=== PATIENT | female | born 1965 | race Two or more races ===

== ENCOUNTER 2023-03-13 08:48 | Inpatient (IN) | payer MEDICAID ==
[~2023-03-13] VITALS: Ht 149.9 cm; Wt 90.6 kg
[2023-03-13 09:43] LABS: Urine Bacteria FEW /hpf (None Seen); Urine Blood Negative /uL (Negative); Urine Clarity HAZY (Clear); Urine Color Yellow (Yellow); Urine Protein, UAD Negative (Negative); Urine WBC 24 /hpf (0 - 5); Urine pH 5.5 (5.0-8.0)
[2023-03-13 09:56] LABS: Alanine Aminotransferase 32 U/L (7-40); Albumin 3.9 g/dL (3.2-4.8); Alkaline Phosphatase 171 U/L (46-116); Anion Gap 10 (5-15); Aspartate Aminotransferase 29 U/L (13-40); BUN/Creatinine Ratio 13.7 (10.0-20.0); Bilirubin, Total 0.7 mg/dL (0.2-1.0); Blood Urea Nitrogen 18 mg/dL (9-23); Calcium 9.3 mg/dL (8.5-10.1); Carbon Dioxide 22 mmol/L (20-30); Chloride 104 mmol/L (98-107); Glucose 310 mg/dL (74-106); Potassium 3.9 mmol/L (3.5-5.1); Sodium 136 mmol/L (136-145); Total Protein 7.3 g/dL (5.7-8.2)
[2023-03-13 10:05] LABS: Basophils # (auto) 0 10 ^3/uL (0-0.2); Basophils % (auto) 0.1 % (0.0-2.0); Eosinophils # (auto) 0.2 10 ^3/uL (0-0.8); Eosinophils % (auto) 3.5 % (0.0-7.0); Hematocrit 46.1 % (36.0-46.0); Hemoglobin 15.1 g/dL (12.2-16.2); Lymphocytes # (auto) 2.3 10 ^3/uL (0.4-5.4); Lymphocytes % (auto) 35.7 % (10.0-50.0); Mean Corpuscular Hemoglobin 30.3 pg (28.0-32.0); Mean Corpuscular Hgb Conc. 32.7 g/dL (32.0-36.0); Mean Corpuscular Volume 92.5 fL (80.0-100.0); Monocytes # (auto) 0.4 10 ^3/uL (0-1.3); Monocytes % (auto) 6.8 % (0.0-12.0); Neutrophils # (auto) 3.4 10 ^3/uL (1.6-8.6); Neutrophils % (auto) 53.9 % (37.0-80.0); Nucleated Red Blood Cells % 0.1 %; Red Blood Cells 4.98 10^6/uL (4.0-5.20); Red Cell Distribution Width 14.8 % (11.8-14.3); White Blood Cell 6.4 10^3/uL (4.4-10.8)
[2023-03-13 12:08] LABS: INR 1.09 (0.9-1.15); Partial Thromboplastin Time 29.3 SEC (24.5-34.5); Prothrombin Time 11.4 sec (9.3-11.8)
[2023-03-13 12:17] LABS: Blood Alcohol < 3.0 mg/dL (<10); Magnesium 2.4 mg/dL (1.6-2.6)
[2023-03-13 12:26] LABS: Lactic Acid w/Reflex 2.7 mmol/L (0.4-2.0)
[2023-03-13] MEDS ORDERED: SODIUM CHLORIDE 0.9% 1,000 ML IV ONE ×2 (12:30→15:00)
[2023-03-13] MEDS ORDERED: PIPERACILLIN-TAZOB 3.375GM 100 ML IV ONE (12:30)
[2023-03-13] MEDS ORDERED: LACTULOSE 20Gm/30ML SOLN PO ONE (13:45)
[2023-03-13] MEDS ORDERED: cefTRIAXone 1GM/50ML D5W 50 ML IV ONE (14:45)
[2023-03-13] MEDS ORDERED: DEXTROSE (50%) 50ML SYRG IV PRN (14:45)
[2023-03-13 15:30] LABS: Triglycerides 131 mg/dL (< 150)
[2023-03-13 15:31] LABS: LDL Cholesterol 58 mg/dL (< 100)
[2023-03-13 15:32] LABS: Cholesterol 136 mg/dL (< 200); HDL Cholesterol 57 mg/dL (40-59)
[2023-03-13] MEDS ORDERED: IOHEXOL 350 MG/ML 100ML IJ ONE (15:57)
[2023-03-13 16:27] LABS: Amphetamine Screen, Urine Neg (NEGATIVE); Barbiturate Scree,Urine Neg (NEGATIVE); Benzodiazephine Screen, Urine Neg (NEGATIVE); Cannabinoid Screen, Urine Neg (NEGATIVE); Cocaine Screen, Urine Neg (NEGATIVE); Opiate Scree,Urine Neg (NEGATIVE); Phencyclidine Screen, Urine Neg (NEGATIVE)
[2023-03-13] MEDS: InsuLIN REG 1unit/0.01ml Soln (100units/ml) SC SCH ×2 (20:22→22:05)
[2023-03-13] MEDS: ACCU-CHEK COMFORT CURVE STRIP VI SCH ×2 (20:22→22:02)
[2023-03-13 20:29] VITALS: PULSE 95; RESP 20; O2SAT 98
[2023-03-13] MEDS: SODIUM CHLORIDE 0.9% 1,000 ML IV SCH (20:31)
[2023-03-13] MEDS: LACTULOSE 20Gm/30ML SOLN PO SCH (21:12)
[2023-03-13] MEDS: HEPARIN SODIUM (PORCINE) 5000 UNITS/ML 1ML VIAL SC SCH (21:13)
[2023-03-14 06:35] LABS: Basophils # (auto) 0 10 ^3/uL (0-0.2); Basophils % (auto) 0.1 % (0.0-2.0); Eosinophils # (auto) 0.2 10 ^3/uL (0-0.8); Hemoglobin 14.1 g/dL (12.2-16.2); Lymphocytes # (auto) 1.9 10 ^3/uL (0.4-5.4); Lymphocytes % (auto) 30.4 % (10.0-50.0); Mean Corpuscular Hemoglobin 30.5 pg (28.0-32.0); Mean Corpuscular Hgb Conc. 32.8 g/dL (32.0-36.0); Mean Corpuscular Volume 92.9 fL (80.0-100.0); Monocytes # (auto) 0.4 10 ^3/uL (0-1.3); Monocytes % (auto) 6.5 % (0.0-12.0); Neutrophils # (auto) 3.8 10 ^3/uL (1.6-8.6); Red Blood Cells 4.63 10^6/uL (4.0-5.20); Red Cell Distribution Width 14.9 % (11.8-14.3); White Blood Cell 6.3 10^3/uL (4.4-10.8)
[2023-03-14 06:51] LABS: Alanine Aminotransferase 27 U/L (7-40); Albumin 3.8 g/dL (3.2-4.8); Alkaline Phosphatase 175 U/L (46-116); Anion Gap 9 (5-15); Aspartate Aminotransferase 24 U/L (13-40); BUN/Creatinine Ratio 10.3 (10.0-20.0); Bilirubin, Total 0.5 mg/dL (0.2-1.0); Blood Urea Nitrogen 10 mg/dL (9-23); Calcium 8.7 mg/dL (8.7-10.4); Carbon Dioxide 18 mmol/L (20-30); Chloride 111 mmol/L (98-107); Glucose 224 mg/dL (74-106); Potassium 3.9 mmol/L (3.5-5.1); Sodium 138 mmol/L (136-145)
[2023-03-14 06:52] LABS: Total Protein 7.3 g/dL (5.7-8.2)
[2023-03-14] MEDS: ACCU-CHEK COMFORT CURVE STRIP VI SCH ×4 (07:57→21:52)
[2023-03-14] MEDS: InsuLIN REG 1unit/0.01ml Soln (100units/ml) SC SCH ×4 (07:58→21:54)
[2023-03-14] MEDS ORDERED: ENOXAPARIN SOD 40 MG/0.4 ML SYRINGE SC SCH (10:00)
[2023-03-14] MEDS: SODIUM CHLORIDE 0.9% 1,000 ML IV SCH (10:10)
[2023-03-14] MEDS: cefTRIAXone 1GM/50ML D5W 50 ML IV SCH (10:10)
[2023-03-14] MEDS: LACTULOSE 20Gm/30ML SOLN PO SCH ×4 (10:18→21:39)
[2023-03-14] MEDS: HEPARIN SODIUM (PORCINE) 5000 UNITS/ML 1ML VIAL SC SCH ×2 (10:21→21:40)
[2023-03-14] MEDS ORDERED: LIDOCAINE VISCOUS 2% 15ML UD ONE (13:37)
[2023-03-14 16:57] VITALS: BP 129/78; PULSE 103; RESP 18; TEMP 98.1; O2SAT 95
[2023-03-14 17:05] VITALS: RESP 18
[2023-03-14 22:00] VITALS: BP 106/40; PULSE 81; RESP 15; TEMP 98; O2SAT 93
[2023-03-15 05:00] VITALS: BP 128/58; PULSE 97; RESP 15; TEMP 98.1; O2SAT 97
[2023-03-15] MEDS: LACTULOSE 20Gm/30ML SOLN PO SCH ×4 (05:48→21:56)
[2023-03-15] MEDS: ACCU-CHEK COMFORT CURVE STRIP VI SCH ×4 (05:53→21:56)
[2023-03-15] MEDS: InsuLIN REG 1unit/0.01ml Soln (100units/ml) SC SCH ×4 (05:53→22:00)
[2023-03-15] MEDS: SODIUM CHLORIDE 0.9% 1,000 ML IV SCH ×2 (05:57→16:45)
[2023-03-15 08:00] VITALS: PULSE 100; RESP 20; O2SAT 99
[2023-03-15 09:00] VITALS: BP 126/64; PULSE 110; RESP 20; TEMP 98.1; O2SAT 99
[2023-03-15] MEDS: cefTRIAXone 1GM/50ML D5W 50 ML IV SCH (09:48)
[2023-03-15 13:00] VITALS: BP 115/62; PULSE 103; RESP 18; TEMP 98.6; O2SAT 99
[2023-03-15 16:59] VITALS: BP 113/59; PULSE 95; RESP 20; TEMP 98.4; O2SAT 94
[2023-03-15] MEDS: AMPICILLIN INJ 1 GM in SODIUM CHL 0.9% 100 ML IV SCH (18:14)
[2023-03-15 22:00] VITALS: BP 107/50; PULSE 81; RESP 17; TEMP 98.2; O2SAT 97
[2023-03-16] MEDS: AMPICILLIN INJ 1 GM in SODIUM CHL 0.9% 100 ML IV SCH ×3 (00:10→12:00)
[2023-03-16 05:00] VITALS: BP_SYST 110; BP_SYST 113; BP_DIAS 52; BP_DIAS 69; PULSE 72; PULSE 77; RESP 17; TEMP 98.1; O2SAT 96; O2SAT 98
[2023-03-16] MEDS: SODIUM CHLORIDE 0.9% 1,000 ML IV SCH (05:20)
[2023-03-16] MEDS: LACTULOSE 20Gm/30ML SOLN PO SCH ×2 (06:25→12:00)
[2023-03-16] MEDS: ACCU-CHEK COMFORT CURVE STRIP VI SCH ×2 (06:25→11:30)
[2023-03-16] MEDS: InsuLIN REG 1unit/0.01ml Soln (100units/ml) SC SCH ×2 (06:29→11:30)
[2023-03-16 08:00] VITALS: BP 116/68; PULSE 105; RESP 18; TEMP 97.9
[2023-03-16 09:00] VITALS: BP 116/68; PULSE 105; RESP 18; TEMP 97.9; O2SAT 100
[2023-03-16] MEDS ORDERED: AMPI500C9 PO (12:18)
[2023-03-16 13:00] VITALS: BP 116/64; PULSE 104; RESP 18; TEMP 98.8; O2SAT 95
[2023-03-16 15:36] VITALS: BP 120/72; PULSE 98; RESP 18; TEMP 97.9; O2SAT 100
[2023-03-16 16:41] VITALS: BP 121/60; PULSE 100; RESP 20; TEMP 98.1; O2SAT 97
== END 2023-03-16 16:58 | disposition home or self-care (01) | DRG 469 ==
LOC: ER 08:48 → OVERFLOW 14:54 → WEST WING 03-14 16:52
PROVIDERS: ADMIT Nurse Practitioner Family; ATTEND Family Medicine
PROC: 05HC33Z Insertion of Infusion Device into Left Basilic Vein, Percutaneous Approach (ICD-10-PCS; principal; 2023-03-13)
PROC: B54NZZA Ultrasonography of Left Upper Extremity Veins, Guidance (ICD-10-PCS; 2023-03-13)
DX: N17.9 Acute kidney failure, unspecified (principal); G93.41 Metabolic encephalopathy; K76.82 Hepatic encephalopathy; E87.21 Acute metabolic acidosis; B95.1 Streptococcus, group B, as the cause of diseases classified elsewhere; E11.9 Type 2 diabetes mellitus without complications; E66.01 Morbid (severe) obesity due to excess calories; K74.60 Unspecified cirrhosis of liver; N10 Acute pyelonephritis; R56.9 Unspecified convulsions; K75.81 Nonalcoholic steatohepatitis (NASH); R79.89 Other specified abnormal findings of blood chemistry; Z91.199 Patient's noncompliance with other medical treatment and regimen due to unspecified reason; Z88.0 Allergy status to penicillin; Z71.3 Dietary counseling and surveillance; Z68.41 Body mass index [BMI] 40.0-44.9, adult
CPT/HCPCS: 36415; 70450; 71045; 71275; 74176; 80053; 80061; 80307; 80320; 81001; 82140; 82962; 83036; 83605; 83735; 84443; 84484; 85025; 85379; 85610; 85730; 87040; 87086; 87088; 93005; 96361; 96365; G0378; J0696; J1815; J2543

== ENCOUNTER → 2023-12-21 | Outpatient (CLI) | payer MEDICAID ==
[~2023-12-21] MED LIST: AMPI500C9 PO
[2023-12-21 07:06] LABS: Basophils # (auto) 0 10 ^3/uL (0-0.2); Basophils % (auto) 0.1 % (0.0-2.0); Eosinophils # (auto) 0.3 10 ^3/uL (0-0.8); Eosinophils % (auto) 5.7 % (0.0-7.0); Hematocrit 38.8 % (36.0-46.0); Hemoglobin 13.1 g/dL (12.2-16.2); Lymphocytes # (auto) 1.7 10 ^3/uL (0.4-5.4); Lymphocytes % (auto) 33.9 % (10.0-50.0); Mean Corpuscular Hemoglobin 30.3 pg (28.0-32.0); Mean Corpuscular Hgb Conc. 33.8 g/dL (32.0-36.0); Mean Corpuscular Volume 89.9 fL (80.0-100.0); Monocytes # (auto) 0.3 10 ^3/uL (0-1.3); Monocytes % (auto) 5.5 % (0.0-12.0); Neutrophils # (auto) 2.7 10 ^3/uL (1.6-8.6); Neutrophils % (auto) 54.8 % (37.0-80.0); Nucleated Red Blood Cells % 0.1 %; Platelet Count (auto) 178 10^3/uL (140-450); Red Blood Cells 4.32 10^6/uL (4.0-5.20); Red Cell Distribution Width 15.7 % (11.8-14.3)
[2023-12-21 07:28] LABS: Alanine Aminotransferase 16 U/L (7-40); Albumin 3.7 g/dL (3.2-4.8); Alkaline Phosphatase 148 U/L (46-116); Anion Gap 8 (5-15); Aspartate Aminotransferase 16 U/L (13-40); BUN/Creatinine Ratio 18.8 (10.0-20.0); Bilirubin, Total 0.6 mg/dL (0.2-1.0); Blood Urea Nitrogen 15 mg/dL (9-23); Calcium 9.1 mg/dL (8.7-10.4); Carbon Dioxide 21 mmol/L (20-30); Chloride 115 mmol/L (98-107); Cholesterol 128 mg/dL (< 200); Glucose 95 mg/dL (74-106); HDL Cholesterol 61 mg/dL (40-59); LDL Cholesterol 48 mg/dL (< 100); Potassium 3.8 mmol/L (3.5-5.1); Sodium 144 mmol/L (136-145); Total Protein 6.6 g/dL (5.7-8.2); Triglycerides 95 mg/dL (< 150)
[2023-12-24 10:10] LABS: Hepatitis B Surface Antigen Negative (Negative)
[2023-12-24 10:31] LABS: Hepatitis C Antibody Negative (Negative)
== END | disposition home or self-care (01) ==
LOC: LAB 06:34
PROVIDERS: ATTEND Internal Medicine Gastroenterology
DX: R19.5 Other fecal abnormalities (principal); R94.5 Abnormal results of liver function studies
CPT/HCPCS: 36415; 80053; 80061; 82140; 83036; 85025; 86803; 87340

== ENCOUNTER 2024-10-28 08:03 | Outpatient (CLI) | payer MEDICAID ==
[2024-10-28 08:57] LABS: Hematocrit 43.2 % (36.0-46.0); Hemoglobin 14.6 g/dL (12.2-16.2); Mean Corpuscular Hemoglobin 30.3 pg (28.0-32.0); Mean Corpuscular Volume 89.5 fL (80.0-100.0); Nucleated Red Blood Cells % 0.0 %
[2024-10-28 09:06] LABS: INR 1.03 (0.9-1.15); Prothrombin Time 10.9 sec (9.3-11.8)
[2024-10-28 09:59] LABS: Alanine Aminotransferase 21 U/L (7-40); Anion Gap 10 (5-15); BUN/Creatinine Ratio 9.9 (10.0-20.0); Blood Urea Nitrogen 10 mg/dL (9-23); Calcium 9.6 mg/dL (8.7-10.4); Carbon Dioxide 23 mmol/L (20-31); Potassium 4.1 mmol/L (3.5-5.1); Total Protein 6.5 g/dL (5.7-8.2)
[2024-10-28 10:00] LABS: Albumin 3.6 g/dL (3.2-4.8); Bilirubin, Total 0.4 mg/dL (0.2-1.0)
[2024-10-28 10:02] LABS: Alkaline Phosphatase 177 U/L (46-116); Chloride 112 mmol/L (98-107); Glucose 230 mg/dL (74-106); Sodium 145 mmol/L (136-145)
== END 2024-10-28 17:00 | disposition home or self-care (01) ==
LOC: LAB 08:03
PROVIDERS: ATTEND Internal Medicine Gastroenterology
DX: K21.9 Gastro-esophageal reflux disease without esophagitis (principal); K74.60 Unspecified cirrhosis of liver
CPT/HCPCS: 36415; 80053; 82140; 85025; 85610; 86038